=== PATIENT | male | born 1965 | race Caucasian/White ===

== ENCOUNTER → 2017-11-06 15:22 | Outpatient (CLI) | payer SELFPAY ==
[2017-11-06 17:48] LABS: AST(SGOT) 50 U/L (15-37); Alanine Aminotransfer ALT/SGPT 100 U/L (16-61); Albumin, Serum 3.8 g/dL (3.2-5.0); Alkaline Phosphatase 123 U/L (45-117); Anion Gap 9 (5-15); BUN 25 mg/dL (7-18); BUN/Creat Ratio 22.5 RATIO (10-20); Calcium,Total 8.6 mg/dL (8.5-10.1); Chloride 106 mmol/L (98-107); Creatinine, Serum 1.11 mg/dL (0.70-1.30); EST Glomerular Filtration Rate 73 mL/min (>60); Est Glom Filt Rate - Afr Amer 89 mL/min (>60); Globulin 3.8 g/dL (2.2-4.2); Glucose 162 mg/dL (74-106); Potassium 4.1 mmol/L (3.5-5.1); Protein, Total 7.6 g/dL (6.4-8.2); Sodium Level 141 mmol/L (136-145)
[2017-11-06 17:51] LABS: Hemoglobin A1c 6.1 % (4.2-6.3)
== END ==
LOC: BFHLAB 15:24
PROVIDERS: Family Provider Family Medicine; PCP Family Medicine; Visit Provider Family Medicine
DX: R81 Glycosuria (principal)
CPT/HCPCS: 36415; 80053; 83036

== ENCOUNTER 2017-12-01 23:44 | Emergency (ER) | payer OTHER, SELFPAY ==
[2017-12-01 23:45] VITALS: BP 161/70; PULSE 92; RESP 14; TEMP 35.8; O2SAT 98; BMI 34.0
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
[2017-12-02 00:28] VITALS: O2SAT 97
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
[2017-12-02 01:40] VITALS: BP 170/74; PULSE 91; RESP 14; O2SAT 97
== END 2017-12-02 01:41 | disposition home or self-care (01) ==
PROVIDERS: Emergency Provider Emergency Medicine; Family Provider Family Medicine; PCP Family Medicine
DX: S46.912A Strain of unspecified muscle, fascia and tendon at shoulder and upper arm level, left arm, initial encounter (principal); S46.812A Strain of other muscles, fascia and tendons at shoulder and upper arm level, left arm, initial encounter; V63.5XXA Driver of heavy transport vehicle injured in collision with car, pick-up truck or van in traffic accident, initial encounter; Y93.9 Activity, unspecified; Y92.410 Unspecified street and highway as the place of occurrence of the external cause; Y99.0 Civilian activity done for income or pay; I10 Essential (primary) hypertension; Z79.899 Other long term (current) drug therapy
CPT/HCPCS: 73030; 99282

== ENCOUNTER → 2018-10-11 13:46 | Outpatient (CLI) | payer SELFPAY ==
[2018-10-11 15:32] LABS: AST(SGOT) 51 U/L (15-37); Alanine Aminotransfer ALT/SGPT 82 U/L (16-61); Albumin, Serum 3.7 g/dL (3.2-5.0); Alkaline Phosphatase 104 U/L (45-117); Anion Gap 9 (5-15); BUN 19 mg/dL (7-18); BUN/Creat Ratio 17.8 RATIO (10-20); Calcium,Total 9.2 mg/dL (8.5-10.1); Chloride 101 mmol/L (98-107); Creatinine, Serum 1.07 mg/dL (0.70-1.30); EST Glomerular Filtration Rate 76 mL/min (>60); Est Glom Filt Rate - Afr Amer 92 mL/min (>60); Globulin 3.6 g/dL (2.2-4.2); Glucose 221 mg/dL (74-106); Potassium 4.1 mmol/L (3.5-5.1); Protein, Total 7.3 g/dL (6.4-8.2); Sodium Level 138 mmol/L (136-145)
[2018-10-11 15:38] LABS: Hemoglobin A1c 6.1 % (4.2-6.3)
== END ==
LOC: BFHLAB 13:47
PROVIDERS: Family Provider Family Medicine; PCP Family Medicine; Visit Provider Family Medicine
DX: I10 Essential (primary) hypertension (principal); R73.03 Prediabetes
CPT/HCPCS: 36415; 80053; 83036

== ENCOUNTER → 2022-09-25 | Outpatient (CLI) | payer OTHER, SELFPAY ==
[2022-09-25 08:12] VITALS: PULSE 104; PULSE 106; PULSE 79; PULSE 93; PULSE 95; PULSE 99; O2SAT 95; O2SAT 96; O2SAT 97
--- NOTE | 2022-09-26 10:45 | PCM.PSN.6M ---
PSN 6 Minute Walk Test 6 Minute Walk Test 6 Minute Walk Test: 6 Minute Walk Test PSN:6-Minute Walk Test Start: 09/25/22 08:12 Freq: Status: Active Protocol: [id number].6MINW Document 09/25/22 08:12 EW (Rec: 09/25/22 08:14 EW [id number]) 6 Minute Walk Test Date Performed 09/25/22 Time Performed 08:15 Height 5 ft 11 in Weight: 260 lb Weight in Pounds [address]: Merrill Reyes Assistive device used: None Pre-test Oxygen Delivery Method Room Air Pulse Ox (%) 96 Pulse Rate (60-100 beats/min) 79 Dyspnea Aakash Scale (0-10) 0 Exertion Aakash Scale (6-20) 8 1st minute Oxygen Delivery Method Room Air Pulse Ox (%) 96 Pulse Rate (60-100 beats/min) 93 2nd minute Oxygen Delivery Method Room Air Pulse Ox (%) 95 Pulse Rate (60-100 beats/min) 95 3rd minute Oxygen Delivery Method Room Air Pulse Ox (%) 95 Pulse Rate (60-100 beats/min) 106 H 4th minute Oxygen Delivery Method Room Air Pulse Ox (%) 95 Pulse Rate (60-100 beats/min) 104 H 5th minute Oxygen Delivery Method Room Air Pulse Ox (%) 95 Pulse Rate (60-100 beats/min) 95 6th minute Oxygen Delivery Method Room Air Pulse Ox (%) 95 Pulse Rate (60-100 beats/min) 99 Post-test Oxygen Delivery Method Room Air Pulse Ox (%) 97 Pulse Rate (60-100 beats/min) 95 Dyspnea Aakash Scale (0-10) 2 Exertion Aakash Scale (6-20) 11 Full Laps Walked 18 Partial Lap, Number of Tiles Walked 0 Total Distance Walked (ft) 1062 Interpretation Interpretation: The patient ambulated 1062 feet over the course of 6 minutes beginning on room air without assistive devices. Pretesting oxygen saturation was noted to be 96% on room air. With ambulation, the isiah oxygen saturation was 95%. There was no significant exertional oxygen desaturation. Recommendations Recommendations: There is no indication for the use of supplemental oxygen at this time.
== END | disposition home or self-care (01) ==
LOC: PSN 07:43
PROVIDERS: PCP Physician Assistant; Referring Provider Internal Medicine Critical Care Medicine; Visit Provider Internal Medicine Critical Care Medicine
DX: R06.02 Shortness of breath (principal)
CPT/HCPCS: 94618

== ENCOUNTER → 2022-10-03 | Outpatient (CLI) | payer OTHER, SELFPAY ==
--- NOTE | 2022-10-03 12:52 | ECHOD_ITS ---
Reason For Study: SOB Procedure This was a 2D Doppler, Color Flow transthoracic echocardiogram. Exam performed in department. Left Ventricle Normal LV size. The estimated ejection fraction is 60 %. No evidence for diastolic dysfunction. No regional wall motion abnormalities noted. Right Ventricle Normal RV size. Normal systolic function. Atria Normal left atrium. Normal right atrium. No doppler evidence for ASD. Mitral Valve There is no mitral valve stenosis. Trivial mitral valve insufficiency. Tricuspid Valve There is no tricuspid stenosis. Unable to estimate RV systolic pressure due to inadequate jet, pulmonary artery pressure probably normal. Aortic Valve Trisinus/trileaflet aortic valve. There is no aortic stenosis. No aortic valve insufficiency. Pulmonic Valve There is no pulmonic valvular stenosis. No pulmonic valve insufficiency. Great Vessels Normal aortic root. Pericardium/Pleural No pericardial effusion. MMode/2D Measurements & Calculations Ao root diam: 3.2 cm LAV(MOD-bp): 80.7 ml LVAd ap4: 29.2 cm2 LAV(MOD-bp) Indexed: 34.0 ml/m2 LVLd ap4: 8.0 cm LAV(MOD-sp2): 75.1 ml EDV(MOD-sp4): 88.5 ml LAV(MOD-sp4): 72.0 ml EDV(sp4-el): 89.9 ml LVAs ap4: 17.2 cm2 LVLs ap4: 6.7 cm ESV(MOD-sp4): 37.8 ml ESV(sp4-el): 37.2 ml EF(MOD-sp4): 57.2 % EF(sp4-el): 58.6 % SV(MOD-sp4): 50.6 ml SV(sp4-el): 52.7 ml LA A4 area: 24.1 cm2 LA dimension(2D): 4.7 cm RA A4 area: 17.8 cm2 Time Measurements MV dec time: 0.23 sec Doppler Measurements & Calculations MV E max fletcher: 67.9 cm/sec Lat Peak E' Fletcher: 10.4 cm/sec Med Peak E' Fletcher: 6.8 cm/sec MV A max fletcher: 65.1 cm/sec E/E' lat: 6.5 E/E' med: 10.0 MV E/A: 1.0 MV V2 max: 73.2 cm/sec MV dec slope: 301.0 cm/sec2 Ao V2 max: 136.3 cm/sec MV max P.1 mmHg Ao max P.4 mmHg MV V2 mean: 48.1 cm/sec Ao V2 mean: 90.9 cm/sec MV mean P.0 mmHg Ao mean P.8 mmHg MV V2 VTI: 27.1 cm Ao V2 VTI: 28.0 cm AV (velocity ratio): 0.91 LV V1 max: 119.3 cm/sec PA V2 max: 115.0 cm/sec LV V1 max P.7 mmHg PA V2 mean: 73.3 cm/sec LV V1 mean P.2 mmHg LV V1 mean: 83.1 cm/sec LV V1 VTI: 25.4 cm ECHO/Echo Complete Interpretation Summary The estimated ejection fraction is 60 %. No evidence for diastolic dysfunction. Trivial mitral valve insufficiency. Ordering Physician: Merrill Reyes Referring Physician: Merrill Reyes Performed By: Essence Hulrey RCS
== END | disposition home or self-care (01) ==
LOC: CVS 12:51
PROVIDERS: PCP Physician Assistant; Referring Provider Internal Medicine Critical Care Medicine; Visit Provider Internal Medicine Critical Care Medicine
DX: R06.02 Shortness of breath (principal)
CPT/HCPCS: 93306